=== PATIENT | female | born 1965 | race Caucasian/White ===

== ENCOUNTER 2023-03-12 12:47 | Emergency (ER) | payer MEDICARE, MEDICAID ==
[~2023-03-12] VITALS: Ht 157.5 cm; Wt 64.7 kg
[2023-03-12 13:01] VITALS: BP 135/52; PULSE 63; RESP 18; TEMP 98.4; O2SAT 97
== END 2023-03-12 15:39 | disposition home or self-care (01) ==
LOC: ER 12:48
DX: S93.505A Unspecified sprain of left lesser toe(s), initial encounter (principal); G89.29 Other chronic pain; Z88.0 Allergy status to penicillin; Z88.6 Allergy status to analgesic agent; Z88.1 Allergy status to other antibiotic agents; Z88.8 Allergy status to other drugs, medicaments and biological substances; Z79.899 Other long term (current) drug therapy; W19.XXXA Unspecified fall, initial encounter; Y93.89 Activity, other specified; Y92.89 Other specified places as the place of occurrence of the external cause; Y99.8 Other external cause status
CPT/HCPCS: 73590; 73630; 99284

== ENCOUNTER 2023-12-16 11:10 | Emergency (ER) | payer MEDICARE, MEDICAID ==
[~2023-12-16] VITALS: Ht 157.5 cm; Wt 54.5 kg
[2023-12-16] MEDS ORDERED: PRED20TA PO (12:40)
[2023-12-16] MEDS: dexamethasone sod phosphate 10mg/ml inj IM STA (12:42)
[2023-12-16 13:16] VITALS: BP 128/78; PULSE 64; RESP 16; TEMP 98.3; O2SAT 99
== END 2023-12-16 13:18 | disposition home or self-care (01) ==
LOC: ER 11:10
DX: M54.12 Radiculopathy, cervical region (principal); Z88.0 Allergy status to penicillin; Z88.5 Allergy status to narcotic agent; Z88.1 Allergy status to other antibiotic agents; Z88.6 Allergy status to analgesic agent
CPT/HCPCS: 96372; 99283; J1100

== ENCOUNTER 2024-09-06 15:03 | Emergency (ER) | payer MEDICARE, MEDICAID ==
[~2024-09-06] VITALS: Ht 157.5 cm; Wt 54.3 kg
--- NOTE | 2024-09-06 15:24 | Physician Documentation ---
History of Present Illness ~ General Chief Complaint: See Chief Complaint Stated Complaint: DIZZY Time Seen by MD: 16:50 Primary Medical Doctor: [facility] History of Present Illness Initial Comments This 58-year-old female presents to the emergency department due to concerns for abnormal labs. She reports that she recently had blood work done, and was found to have a low MCHC. She has done some research, has concerns that she may have anemia. She brings with her copies of labs. Symptoms are extreme fatigue and "cramping all over." She also notes intermittent palpitations and new onset of constipation. She notes hx of C3-C7 fusion and that she is concerned that there may be a problem with her fusion as the constipation and cramping were present pre-op prior to the surgery in April, but had completely resolved. Medication Reconciliation Allergies: Coded Allergies: Penicillins (Verified Allergy, Severe, rash, 12/16/23) aspirin (Verified Allergy, Severe, stomach pains, 12/16/23) erythromycin base (Verified Allergy, Severe, stomach pain, 12/16/23) hydromorphone (Verified Allergy, Severe, throat closes, 12/16/23) leflunomide (Verified Allergy, Severe, diarrhea, 12/16/23) morphine (Verified Allergy, Severe, stomach pains, 12/16/23) tetracycline (Unverified Allergy, Severe, stomach pain, 12/16/23) tramadol (Unverified Allergy, Severe, stomach pains, 12/16/23) NSAIDS (Non-Steroidal Anti-Inflamma (Unverified Allergy, Unknown, 12/16/23) Hx of gastric bypass Review of Systems ROS As stated above in the HPI, otherwise all systems are reviewed and negative. Physical Exam Physical Exam Vital Signs: Temperature: 97.8, Source: Oral, Heart Rate: 76, Respiratory Rate: 19, BP: 131/73, Pulse Oximetry: 98, Weight: 54.300 Physical Exam General: Alert, cries on exam. HEENT: PERRL, EOMI, no injection, moist mucous membranes. Neck: Full range of motion. Respiratory: Lungs clear, no respiratory distress. Chest: No accessory muscle use. Cardiovascular: Regular rate and rhythm, no murmurs. Gastrointestinal: Soft, nontender, nondistended. Bowels sounds present. Extremities: Normal range of motion, no deformity. Neurologic: Oriented x4. Psychiatric: Appears anxious, cries on exam. Skin: Normal color, warm and dry. No edema, no ecchymosis. Progress Results/Orders Results/Orders Orders - JUDY LUNDBERG FOUNDRY PATTERNMAKER Ct Cervical Spine (09/06/24 17:37) Completed Orders - JUDY LUNDBERG FOUNDRY PATTERNMAKER MG (09/06/24 15:49) Cbc/Diff (09/06/24 15:49) CMP (09/06/24 15:49) Ct Cervical Spine (09/06/24 17:37) Vital Signs 09/06/24 15:13 Temp 97.8 Pulse 76 Resp 19 B/P (MAP) 131/73 Pulse Ox 98 Laboratory Tests Test 09/06/24 16:07 White Blood Count 5.9 Red Blood Count 4.23 Hemoglobin 12.0 Hematocrit 36.0 Mean Corpuscular Volume 85.2 Mean Corpuscular Hemoglobin 28.3 Mean Corpuscular Hemoglobin Concent 33.3 Red Cell Distribution Width 14.2 Platelet Count 304 Mean Platelet Volume 7.5 Neutrophils (%) (Auto) 50.9 Lymphocytes (%) (Auto) 35.6 Monocytes (%) (Auto) 9.8 Eosinophils (%) (Auto) 3.4 Basophils (%) (Auto) 0.3 Neutrophils # (Auto) 3.0 Lymphocytes # (Auto) 2.1 Monocytes # (Auto) 0.6 Eosinophils # (Auto) 0.2 Basophils # (Auto) 0.0 CBC Comment Sodium Level 142 Potassium Level 4.2 Chloride Level 107 Carbon Dioxide Level 28.2 Anion Gap 7 L Blood Urea Nitrogen 20 H Creatinine 0.64 Estimated GFR/1.73 m2 > 90 BUN/Creatinine Ratio 31.3 H Glucose Level 104 Calcium Level 8.6 Magnesium Level 2.0 Total Bilirubin 0.3 Aspartate Amino Transf (AST/SGOT) 22 Alanine Aminotransferase (ALT/SGPT) 29 Alkaline Phosphatase 90 Total Protein 6.7 Albumin 3.3 L Globulin 3.4 Albumin/Globulin Ratio 1.0 L Chemistry Comments EKG/XRAY/CT/US/VASC/MRI EKG : Additional Comment 1520: EKG interpreted to show RSR rate of 70. QTC 394. No ST segment elevation. No ectopy. CT : Impression [facility] [place] [address], [place], [place] - [address] CAT SCAN Patient: MAX MAC Medical Record: [id number] [facility] : 1965, Age: 58 Sex: Female Location: ER Patient Status: [facility] ER Service Date/Time: 09/06/241736 Ordering Physician: JUDY LUNDBERG NP Exam: CT CERVICAL SPINE EXAM: CT CT CERVICAL SPINE INDICATION: new parasthesia after C3-C7 fusion EXAM DATE: 09/06/2024 05:30 PM COMPARISON: None TECHNIQUE: Multiple axial CT images of the cervical spine were obtained using bone algorithm. Axial and coronal reformatting was done. Bone and soft tissue windows were reviewed. Radiation Dose Information: CT Dose: CTDI volume is 14.9 mGy. Dose-length product is 354 mGy*cm FINDINGS: The cervical alignment is intact. No acute cervical spine fracture is identified. The vertebral body heights are intact. No suspicious osseous lesions are identified. Status post C4-C7 anterior fusion with prosthetic discs in place. No evidence of hardware complication. There is no prevertebral soft tissue swelling. IMPRESSION: 1. No evidence of acute cervical spine fracture or traumatic malalignment. 2. Status post C4-C7 anterior fusion with prosthetic discs in place. No evidence of hardware complication. All CT scans at this medical facility are performed using dose modulation techniques as appropriate to a performed exam including the following: Automated exposure control was utilized; adjustment of the MA and/or KV according to patient size; and use of iterative reconstruction technique. Electronically Signed by:TRINY ECKERT MD Date & Time: 09/06/241805 Dictated by: TRINY ECKERT MD Dictation date and time: 09/06/241805 Primary Care Provider: NO PRIMARY CARE PROVIDER cc: JUDY LUNDBERG NP ~ Medical Decision Making Differential Diagnosis 58-year-old female who presented with a myriad of concerns today. Primarily, she is expressing extreme fatigue and return of constipation and cramping that were not present postoperative C3 through C7 Fusion in April. CT scan reassuring for hardware in good position. Remainder of symptoms do not appear to represent an emergent concern and may be addressed as an outpatient with her primary care. Extensive reassurance provided as patient very teary and anxious throughout ER stay. Departure Time of Disposition: 18:12 Disposition: 01 HOME / SELF CARE / HOMELESS Impression: Primary Impression: Cramping of hands Additional Impressions: Constipation Neck pain Fatigue Condition: Stable Discharge Instructions: Cervical Fusion, Care After, Constipation, Adult, Fatigue, Muscle Cramps and Spasms Additional Instructions: CT scan of your neck was very reassuring. It showed that all of your postoperative hardware is in good position without evidence of traumatic misalignment or loosening of hardware. All of your labs were normal today, including your complete blood count, mag nesium, liver function testing, kidney function. Please followup with Primary Care. Please also continue to see your therapist. You mentioned that you has been under a lot of stress, this can make symptoms worse. Please see the provided instructions regarding management of constipation and the other symptoms that you've mentioned. Referrals: NO PRIMARY CARE PROVIDER (PCP) Education Educated: Patient Educated regarding: diagnosis, treatment, prognosis, need for follow up Signature Scribe Signature: x Attestation: The note accurately reflects work and decisions made by me.Judy Pascal NP 09/06/24 16:53 JUDY LUNDBERG NP Sep 06, 2024 15:24
[2024-09-06 16:17] LABS: MEAN PLATELET VOLUME 7.5 FL (7.4-10.4); RED CELL DISTRIBUTION WIDTH 14.2 % (11.5-14.5)
[2024-09-06 16:28] LABS: CREATININE 0.64 MG/DL (0.40-0.90); TOTAL CARBON DIOXIDE 28.2 MMOL/L (24-32); eCRCL 77 ML/MIN; eGFR > 90 ML/MIN
--- NOTE | 2024-09-06 16:42 | ELECTROCARDIOGRAPH REPORT ---
[facility] Test Date: 2024-09-06 Test Time: 15:20:31 Pat Name: MAX MAC Department: EMERGENCY ROOM Room: Gender: F [employer]: [employer] : 1965 Requested By: DEPARTMENT EMERGENCY Order Number: [id number] Reading MD: Measurements Intervals [place] Rate: 70 P: 61 DE: 118 QRS: 75 QRSD: 94 T: 37 QT: 365 QTc: 394 Interpretive Statements Sinus rhythm Borderline short DE interval Please click the below link to view image of tracing.
--- NOTE | 2024-09-06 18:09 | RADIOLOGY REPORT ---
EXAM: CT CT CERVICAL SPINE INDICATION: new parasthesia after C3-C7 fusion EXAM DATE: 09/06/2024 05:30 PM COMPARISON: None TECHNIQUE: Multiple axial CT images of the cervical spine were obtained using bone algorithm. Axial a nd coronal reformatting was done. Bone and soft tissue windows were reviewed. Radiation Dose Information: CT Dose: CTDI volume is 14.9 mGy. Dose-length product is 354 mGy*cm FINDINGS: The cervical alignment is intact. No acute cervical spine fracture is identified. The vertebral body heights are intact. No suspicious osseous lesions are identified. Status post C4-C7 anterior fusion with prosthetic discs in place. No evidence of hardware complicatio n. There is no prevertebral soft tissue swelling. IMPRESSION: 1. No evidence of acute cervical spine fracture or traumatic malalignment. 2. Status post C4-C7 anterior fusion with prosthetic discs in place. No evidence of hardware complica tion. All CT scans at this medical facility are performed using dose modulation techniques as appropriate t o a performed exam including the following: Automated exposure control was utilized; adjustment of th e MA and/or KV according to patient size; and use of iterative reconstruction technique.
[2024-09-06 18:51] VITALS: BP 130/72; PULSE 75; RESP 18; TEMP 98.6; O2SAT 99
== END 2024-09-06 18:52 | disposition home or self-care (01) ==
LOC: ER 15:04
DX: R25.2 Cramp and spasm (principal); M54.2 Cervicalgia; K59.00 Constipation, unspecified; R53.83 Other fatigue; Z88.0 Allergy status to penicillin; Z88.1 Allergy status to other antibiotic agents; Z88.5 Allergy status to narcotic agent; Z88.6 Allergy status to analgesic agent
CPT/HCPCS: 36415; 72125; 80053; 83735; 85025; 93005; 99284